=== PATIENT | male | born 1985 | race American Indian/Alaskan Native ===

== ENCOUNTER 2019-03-22 16:50 | Emergency (ER) | payer SELFPAY ==
[2019-03-22] MEDS ORDERED: ASPIRIN PO ONE (17:28)
--- NOTE | 2019-03-22 17:30 | Event Note ---
ED Screening Note Date of service: 03/22/19 Time: 17:28 ED Screening Note: This is a 33 y.o. M. that presents to the ER with chest pain for 2-3 weeks. Reports pain as sharp and constant. Occasional marijuana smoker PMH HTN This initial assessment/diagnostic orders/clinical plan/treatment(s) is/are subject to change based on patients health status, clinical progression and re- assessment by fellow clinical providers in the ED. Further treatment and workup at subsequent clinical providers discretion. Patient/guardian urged not to elope from the ED as their condition may be serious if not clinically assessed and managed. Initial orders include: CXR, labs, and ekg
--- NOTE | 2019-03-22 18:01 | XRay Report ---
. CHEST 1 VIEW INDICATION / CLINICAL INFORMATION: Chest Pain. COMPARISON: None available. FINDINGS: SUPPORT DEVICES: None. HEART / MEDIASTINUM: No significant abnormality. LUNGS / PLEURA: No significant pulmonary or pleural abnormality. No pneumothorax. ADDITIONAL FINDINGS: No significant additional findings. IMPRESSION: 1. No acute findings. Signer Name: Jeffery Felton MD Signed: 03/22/2019 5:57 PM Workstation Name: [id number]
--- NOTE | 2019-03-22 18:14 | Emergency Department Report ---
ED Chest Pain HPI - General Chief Complaint: Chest Pain Stated Complaint: HEART PAIN/POSS KIDNEY INFECTION Time Seen by Provider: 03/22/19 17:27 Source: patient Mode of arrival: Ambulatory Limitations: No Limitations - History of Present Illness Initial Comments: 33-year-old -[place] male complains of sharp chest pain has been going on for 3 weeks but the last 2 days and got worse. Patient reports that he has been moving from [place]. Patient also reports doing pushups. He admits to being under stress. Patient does have a past medical history of GERD panic attacks anxiety and diverticulosis. Patient reports that he was given Xanax in [place] for his anxiety. He reports the pain is under the left breast. MD Complaint: chest pain Pain Location: left chest Pain Radiation: none Severity scale (0 -10): 6 Quality: sharp Consistency: intermittent Worsens With: palpation Treatments Prior to Arrival: none - Related Data Previous Rx's Medication Instructions Recorded Last Taken Type Ibuprofen [Motrin 800 MG tab] 800 mg PO Q8HR PRN #15 tablet 03/22/19 Unknown Rx Allergies Allergy/AdvReac Type Severity Reaction Status Date / Time No Known Allergies Allergy Unverified 03/22/19 16:51 Heart Score - HEART Score History: Slightly suspicious EKG: Normal Age: < 45 Risk factors: No known risk factors Troponin: 1-3x normal limit HEART Score: 1 ED Review of Systems ROS: Stated complaint: HEART PAIN/POSS KIDNEY INFECTION Other details as noted in HPI Comment: All other systems reviewed and negative Respiratory: denies: cough, shortness of breath, SOB with exertion, SOB at rest, wheezing Cardiovascular: denies: palpitations, dyspnea on exertion Gastrointestinal: denies: abdominal pain, nausea, diarrhea ED Past Medical Hx - Past Medical History Previous Medical History?: Yes Hx GERD: Yes Hx Psychiatric Treatment: Yes (Panic Attacks) Additional medical history: Anxiety, Diverticulosis - Surgical History Past Surgical History?: Yes Additional Surgical History: Facial - Social History Smoking Status: Never Smoker Substance Use Type: Alcohol, Marijuana - Medications Home Medications: Home Medications Medication Instructions Recorded Confirmed Last Taken Type Ibuprofen [Motrin 800 MG tab] 800 mg PO Q8HR PRN #15 tablet 03/22/19 Unknown Rx ED Physical Exam - General Limitations: No Limitations General appearance: alert, in no apparent distress - Head Head exam: Present: atraumatic, normocephalic - Eye Eye exam: Present: normal appearance - ENT ENT exam: Present: mucous membranes moist - Respiratory Respiratory exam: Present: normal lung sounds bilaterally, chest wall tenderness. Absent: respiratory distress - Cardiovascular Cardiovascular Exam: Present: regular rate, normal rhythm. Absent: systolic murmur, diastolic murmur, rubs, gallop - GI/Abdominal GI/Abdominal exam: Present: soft, normal bowel sounds - Neurological Exam Neurological exam: Present: alert, oriented X3, normal gait - Psychiatric Psychiatric exam: Present: normal affect, normal mood - Skin Skin exam: Present: warm, dry, intact, normal color. Absent: rash ED Course Vital Signs 03/22/19 17:28 Temperature 98.5 F Pulse Rate 84 Respiratory 20 Rate Blood Pressure 141/92 O2 Sat by Pulse 99 Oximetry LIO score - Lio Score Age > 65: (0) No Aspirin use within the Past 7 Days: (0) No 3 or more CAD Risk Factors: (0) No 2 or more Angina events in past 24 hrs: (0) No Known CAD with more than 50% Stenosis: (0) No Elevated Cardiac Markers: (0) No ST Deviation Greater than 0.5mm: (0) No LIO Score: 0 ED Medical Decision Making - Lab Data Result diagrams: 03/22/19 18:12 03/22/19 18:12 - EKG Data EKG shows normal: sinus rhythm Rate: normal - Radiology Data Radiology results: report reviewed Patient: ORALIA CALVO MR# : [id number] : 1985 Acct:[id number] Age/Sex: 33 / M ADM Date: 03/22/19 Loc: ED Attending Dr: Ordering Physician: AVIVA GONZALES Date of Service: 03/22/19 Procedure(s): XR chest 1V ap Accession Number(s): [id number] cc: AVIVA GONZALES Fluoro Time In Minutes: . CHEST 1 VIEW INDICATION / CLINICAL INFORMATION: Chest Pain. COMPARISON: None available. FINDINGS: SUPPORT DEVICES: None. HEART / MEDIASTINUM: No significant abnormality. LUNGS / PLEURA: No significant pulmonary or pleural abnormality. No pneum othorax. ADDITIONAL FINDINGS: No significant additional findings. IMPRESSION: 1. No acute findings. Signer Name: Jeffery Felton MD Signed: 03/22/2019 5:57 PM Workstation Name: [id number] Transcribed By: ELIJAH Dictated By: Jeffery Felton MD Electronically Authenticated By: Jeffery Felton MD Signed Date/Time: 03/22/191756 DD/ 55 TD/TT: - Medical Decision Making 33-year-old -[place] male complains of sharp chest pain has been going on for 3 weeks but the last 2 days and got worse. Patient reports that he has been moving from [place]. Patient also reports doing pushups. He admits to being under stress. Patient does have a past medical history of GERD panic attacks anxiety and diverticulosis. Patient reports that he was given Xanax in [place] for his anxiety. He reports the pain is under the left breast. He since had a cardiac workup with 2 negative troponins chest x-ray is negative EKG shows normal sinus rhythm. Patient has chest wall tenderness patient be discharged home on ibuprofen and to follow up with her primary care provider. Critical care attestation.: If time is entered above; I have spent that time in minutes in the direct care of this critically ill patient, excluding procedure time. ED Disposition Clinical Impression: Chest wall tenderness, Obesity (BMI 35.0-39.9 without comorbidity) Disposition: DC-01 TO HOME OR SELFCARE Is pt being admited?: No Does the pt Need Aspirin: No Condition: Stable Instructions: Chest Pain (ED), Costochondritis (ED), Weight Management (ED), Obesity (ED) Additional Instructions: Cardiac workup is negative for any acute findings. Please take ibuprofen for chest wall tenderness. Please incorporate exercise and weight loss. Follow up with a primary care provider if symptoms persist or gets worse. Prescriptions: Ibuprofen [Motrin 800 MG tab] 800 mg PO Q8HR PRN #15 tablet PRN Reason: Pain , Severe (7-10) Referrals: PRIMARY CARE, [Primary Care Provider] - 3-5 Days
[2019-03-22 18:39] LABS: Basophils % (Auto) 0.4 % (0.0-1.8); Eosinophils # (Auto) 0.1 K/mm3 (0.0-0.4); Eosinophils % (Auto) 0.7 % (0.0-4.3); Hematocrit 42.6 % (35.5-45.6); Hemoglobin 14.4 gm/dl (11.8-15.2); Lymphocytes # (Auto) 2.7 K/mm3 (1.2-5.4); Lymphocytes % (Auto) 27.5 % (13.4-35.0); Mean Corpuscular HGB Conc 34 % (32-34); Mean Corpuscular Volume 98 fl (84-94); Platelet Count 226 K/mm3 (140-440); Red Blood Count 4.37 M/mm3 (3.65-5.03); Red Cell Distribution Width 13.8 % (13.2-15.2)
[2019-03-22 18:48] LABS: BUN/Creatinine Ratio 12; Blood Urea Nitrogen 11 mg/dL (9-20); Calcium 9.6 mg/dL (8.4-10.2); Hemolysis Index 22
[2019-03-22] MEDS ORDERED: ASPIRIN ONE (20:01)
[2019-03-22 21:09] VITALS: BP 152/94
== END 2019-03-22 21:08 | disposition home or self-care (01) ==
LOC: ED 16:50
DX: R07.89 Other chest pain (principal); K21.9 Gastro-esophageal reflux disease without esophagitis; F41.0 Panic disorder [episodic paroxysmal anxiety]; F41.9 Anxiety disorder, unspecified; K57.90 Diverticulosis of intestine, part unspecified, without perforation or abscess without bleeding; F12.10 Cannabis abuse, uncomplicated; E66.01 Morbid (severe) obesity due to excess calories; Z68.39 Body mass index [BMI] 39.0-39.9, adult; Z79.899 Other long term (current) drug therapy
CPT/HCPCS: 36415; 71045; 80048; 84484; 85025; 93005; 93010

== ENCOUNTER 2019-09-24 11:16 | Emergency (ER) | payer SELFPAY ==
[2019-09-24 12:17] VITALS: BP 156/100
[2019-09-24] MEDS ORDERED: METOCLOPRAMIDE 10 MG TAB PO ONE (12:22)
[2019-09-24] MEDS ORDERED: ACETAMINOPHEN 325 MG TAB PO ONE (12:22)
--- NOTE | 2019-09-24 12:24 | Emergency Department Report ---
Chief Complaint: Chest Pain Stated Complaint: HPB/HEADACHE - HPI History of Present Illness: 34 y/o male c/o cp, no pe or dvt risk factors perc neg, right sided headache, b/l flank pain and urinary hesitancy no reg flag historical features w headache gcs 15 labs ekg ua, xr chest, pain meds reassess Vital Signs 09/24/19 12:13 Temperature 98.5 F Pulse Rate 82 Respiratory 20 Rate Blood Pressure 156/100 O2 Sat by Pulse 99 Oximetry - Exam Vital Signs: Vital Signs 09/24/19 12:13 Temperature 98.5 F Pulse Rate 82 Respiratory 20 Rate Blood Pressure 156/100 O2 Sat by Pulse 99 Oximetry MSE screening note: Focused history and physical exam performed. Due to findings the following was ordered: ED Disposition for MSE Condition: Stable
--- NOTE | 2019-09-24 13:15 | XRay Report ---
CHEST 2 VIEWS INDICATION / CLINICAL INFORMATION: Chest pain. COMPARISON: 03/22/2019 FINDINGS: SUPPORT DEVICES: None. HEART / MEDIASTINUM: No significant abnormality. LUNGS / PLEURA: No significant pulmonary or pleural abnormality. No pneumothorax. ADDITIONAL FINDINGS: No significant additional findings. IMPRESSION: 1. No acute findings. Signer Name: Jung Disla MD Signed: 09/24/2019 1:10 PM Workstation Name: [id number]
[2019-09-24 13:46] LABS: Hematocrit 45.2 % (35.5-45.6); Hemoglobin 15.3 gm/dl (11.8-15.2); Mean Corpuscular HGB Conc 34 % (32-34); Mean Corpuscular Volume 97 fl (84-94); Platelet Count 297 K/mm3 (140-440); Red Blood Count 4.68 M/mm3 (3.65-5.03); Red Cell Distribution Width 13.8 % (13.2-15.2)
[2019-09-24 14:00] LABS: INR 0.99 (0.87-1.13)
[2019-09-24 14:06] LABS: Alanine Aminotransferase 75 units/L (7-56); Albumin 4.3 g/dL (3.9-5); BUN/Creatinine Ratio 11; Blood Urea Nitrogen 11 mg/dL (9-20); Calcium 9.5 mg/dL (8.4-10.2); Hemolysis Index 8
[2019-09-24] MEDS ORDERED: METOCLOPRAMIDE 10 MG TAB ONE (14:48)
[2019-09-24] MEDS ORDERED: ACETAMINOPHEN 325 MG TAB ONE (14:48)
--- NOTE | 2019-09-24 17:30 | Emergency Department Report ---
<YANETH OWUSU - Last Filed: 09/24/19 19:01> ED General Adult HPI - General Chief complaint: Chest Pain Stated complaint: HPB/HEADACHE Time Seen by Provider: 09/24/19 15:44 Source: patient Mode of arrival: Ambulatory Limitations: No Limitations - History of Present Illness Initial comments: This is a 34-year-old -[place] male that presents to the emergency room with headache, chest pain, and elevated blood pressure for 1 day. Patient states he went to the pharmacy for allergy medication and his blood pressure was checked and told it was elevated to follow-up in the emergency room. Patient denies past medical history of hypertension. Patient states his blood pressure is always elevated when doctor but he never received a diagnosis. He also reports cough, congestion, and constant throbbing pain on right side of head behind right eye. States currently taking TheraFlu which improved body aches. He denies palpitations, dizziness, fever, chills, myalgia, or weakness. Onset/Timin -: days(s) Location: head, chest Severity scale (0 -10): 9 Quality: other (throbbing) Consistency: constant Improves with: none Worsens with: none Associated Symptoms: denies other symptoms Treatments Prior to Arrival: none - Related Data Previous Rx's Medication Instructions Recorded Last Taken Type Ibuprofen [Motrin 800 MG tab] 800 mg PO Q8HR PRN #15 tablet 03/22/19 Unknown Rx Allergies Allergy/AdvReac Type Severity Reaction Status Date / Time No Known Allergies Allergy Unverified 03/22/19 16:51 ED Review of Systems Constitutional: denies: chills, fever ENT: congestion. denies: ear pain, throat pain Respiratory: cough. denies: shortness of breath, wheezing Cardiovascular: chest pain. denies: palpitations Gastrointestinal: denies: abdominal pain, nausea, diarrhea Musculoskeletal: myalgia. denies: back pain, joint swelling, arthralgia Skin: denies: rash, lesions Neurological: headache. denies: weakness, paresthesias Psychiatric: denies: anxiety, depression ED Past Medical Hx - Past Medical History Previous Medical History?: Yes Hx GERD: Yes Hx Psychiatric Treatment: Yes (Panic Attacks) Additional medical history: Anxiety, Diverticulosis - Surgical History Past Surgical History?: Yes Additional Surgical History: Facial - Social History Smoking Status: Never Smoker Substance Use Type: Alcohol - Medications Home Medications: Home Medications Medication Instructions Recorded Confirmed Last Taken Type Ibuprofen [Motrin 800 MG tab] 800 mg PO Q8HR PRN #15 tablet 03/22/19 Unknown Rx ED Physical Exam - General Limitations: No Limitations General appearance: alert, in no apparent distress, obese - ENT ENT exam: Present: mucous membranes moist, TM's normal bilaterally, normal external ear exam, other (turbinates congested with mucoid discharge). Absent: normal orophraynx (erythematous posterior pharynx, uvula midline no exudate) - Neck Neck exam: Present: normal inspection - Respiratory Respiratory exam: Present: normal lung sounds bilaterally. Absent: respiratory distress, wheezes, rales, rhonchi, stridor, chest wall tenderness, accessory muscle use - Cardiovascular Cardiovascular Exam: Present: regular rate, normal rhythm. Absent: systolic murmur, diastolic murmur, rubs, gallop - GI/Abdominal GI/Abdominal exam: Present: soft, normal bowel sounds. Absent: distended, tenderness, guarding, rebound, rigid - Back Exam Back exam: Absent: CVA tenderness (R), CVA tenderness (L) - Neurological Exam Neurological exam: Present: alert, oriented X3, normal gait - Psychiatric Psychiatric exam: Present: normal affect, normal mood - Skin Skin exam: Present: warm, dry, intact, normal color. Absent: rash ED Medical Decision Making - Lab Data Result diagrams: 09/24/19 13:00 09/24/19 13:00 Lab Results 09/24/19 09/24/19 09/24/19 Range/Units 13:00 13:00 13:00 WBC 10.7 (4.5-11.0) K/mm3 RBC 4.68 (3.65-5.03) M/mm3 Hgb 15.3 H (11.8-15.2) gm/dl Hct 45.2 (35.5-45.6) % MCV 97 H (84-94) fl MCH 33 H (28-32) pg MCHC 34 (32-34) % RDW 13.8 (13.2-15.2) % Plt Count 297 (140-440) K/mm3 PT 13.2 (12.2-14.9) Sec. INR 0.99 (0.87-1.13) Sodium 139 (137-145) mmol/L Potassium 4.1 (3.6-5.0) mmol/L Chloride 102.4 (98-107) mmol/L Carbon Dioxide 23 (22-30) mmol/L Anion Gap 18 mmol/L BUN 11 (9-20) mg/dL Creatinine 1.0 (0.8-1.5) mg/dL Estimated GFR > 60 ml/min BUN/Creatinine Ratio 11 % Glucose 96 (75-100) mg/dL Calcium 9.5 (8.4-10.2) mg/dL Magnesium 2.20 (1.7-2.3) mg/dL Total Bilirubin 0.20 (0.1-1.2) mg/dL AST 27 (5-40) units/L ALT 75 H (7-56) units/L Alkaline Phosphatase 91 (35-129) units/L Total Creatine Kinase 275 H (55-170) units/L Total Protein 8.0 (6.3-8.2) g/dL Albumin 4.3 (3.9-5) g/dL Albumin/Globulin Ratio 1.2 % - EKG Data -: No EKG Interpreted by Me (interpreted by attending) EKG shows normal: sinus rhythm Rate: normal - Radiology Data Radiology results: report reviewed CHEST 2 VIEWS INDICATION / CLINICAL INFORMATION: Chest pain. COMPARISON: 03/22/2019 FINDINGS: SUPPORT DEVICES: None. HEART / MEDIASTINUM: No significant abnormality. LUNGS / PLEURA: No significant pulmonary or pleural abnormality. No pneumothorax. ADDITIONAL FINDINGS: No significant additional findings. IMPRESSION: 1. No acute findings. - Medical Decision Making This is a 34-year-old male who presents to the emergency room with chest pain, headache, and elevated blood pressure for 2 days. Workup: EKG, CXR, CBC, BMP. No evidence of STEMI or malignant arrhythmia. CK and ALT slightly elevated. All of the labs are unremarkable for emergent problems. Chest x-ray without acute cardiopulmonary findings. Given History, Exam, and Workup there is low suspicion for ACS, Pneumothorax, Pneumonia, Pulmonary Embolus, Tamponade, Aortic Dissection or other emergent problem as a cause for this presentation. Nursing staff informed patient not in room when they attempt to get another set of vital signs prior to discharge. Patient called 2 with no answer. ED Disposition Clinical Impression: Left against medical advice Chest pain Qualifiers: Chest pain type: other chest pain Qualified Code(s): R07.89 - Other chest pain Migraine Qualifiers: Migraine type: without aura Status migrainosus presence: with status migrainosus Intractability: not intractable Qualified Code(s): G43.001 - Migraine without aura, not intractable, with status migrainosus Disposition: Z-07 ELOPED Is pt being admited?: No Condition: Undetermined Instructions: Chest Pain (ED) Referrals: PRIMARY CARE, [Primary Care Provider] - 3-5 Days <TAMELA JOSÉ - Last Filed: 09/25/19 17:44> ED Review of Systems ROS: Stated complaint: HPB/HEADACHE Other details as noted in HPI ED Course Vital Signs 09/24/19 12:13 Temperature 98.5 F Pulse Rate 82 Respiratory 20 Rate Blood Pressure 156/100 O2 Sat by Pulse 99 Oximetry ED Medical Decision Making - Lab Data Result diagrams: 09/24/19 13:00 09/24/19 13:00 Critical care attestation.: If time is entered above; I have spent that time in minutes in the direct care of this critically ill patient, excluding procedure time. ED Disposition Is pt being admited?: No Does the pt Need Aspirin: No
== END 2019-09-24 16:30 | disposition left against medical advice (07) ==
LOC: ED 11:16
DX: G43.909 Migraine, unspecified, not intractable, without status migrainosus (principal); R07.89 Other chest pain; K21.9 Gastro-esophageal reflux disease without esophagitis; F41.9 Anxiety disorder, unspecified; Z98.890 Other specified postprocedural states; Z79.899 Other long term (current) drug therapy
CPT/HCPCS: 36415; 71046; 80053; 82550; 83735; 85027; 85610; 93005; 93010